=== PATIENT | female | born 1940 | race Caucasian/White ===

== ENCOUNTER 2017-03-11 11:17 | Emergency (ER) | payer MEDICARE, OTHER ==
--- NOTE | 2017-03-11 11:32 | EDM.PDOC ---
ED HPI GENERAL MEDICAL PROBLEM - General Chief Complaint: Respiratory Problem Stated Complaint: INFLUENZA Time Seen by Provider: 03/11/17 11:17 Source of Information: Reports: Patient, Family History Limitations: Reports: No Limitations - History of Present Illness INITIAL COMMENTS - FREE TEXT/NARRATIVE: 76 y.o.w.f came to the ed with her friend to the ed due to weakness and epigastric pain. Pt was dx'd last Monday with influenza A, is not on Tamiflu. pt stated she nearly passed out this am when she got up fast. Feels weak, no N/V /D or any other acute medical issues. BP 115/57 pluse 83 Temp 36.2 RR 18 Pulse ox 100% on RA. I spoke with daughter (PA) in [place]. Onset Date: 03/07/17 Onset Time: 08:00 Duration: Day(s):, Intermittent Location: Reports: Generalized Quality: Reports: Dull (epigastric pressure.) Improves with: Reports: Rest Worsens with: Reports: Movement Context: Reports: Other (flu symptoms) Associated Symptoms: Reports: No Other Symptoms - Related Data Allergies Allergy/AdvReac Type Severity Reaction Status Date / Time No Known Allergies Allergy Verified 03/11/17 11:25 Home Meds: Home Meds Calcium Carbonate/Vitamin D3 [Calcium 600 + Vit D Tablet] 1,200 mg PO WITHBREAKFAST 02/16/14 [History] Raloxifene [Evista] 60 mg PO DAILY 02/16/14 [History] Cholecalciferol (Vitamin D3) [Vitamin D3] 2,000 unit PO DAILY 05/09/16 [History] Ciprofloxacin HCl [Cipro] 500 mg PO BID #20 tablet 03/11/17 [Rx] Oseltamivir [Tamiflu] 75 mg PO DAILY #10 cap 03/11/17 [Rx] Sertraline HCl [Sertraline HCl] 50 mg PO DAILY 03/11/17 [History] Past Medical History - Past Health History Medical/Surgical History: Denies Medical/Surgical History HEENT History: Reports: Cataract, Hard of Hearing Cardiovascular History: Reports: High Cholesterol, Hypertension Respiratory History: Reports: None Gastrointestinal History: Reports: GERD Genitourinary History: Reports: None [employer] 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: , Prolapsed Uterus Musculoskeletal History: Reports: Back Pain, Chronic, Osteoporosis Neurological History: Reports: Other (See Below) Other Neuro History: INSOMNIA Psychiatric History: Reports: Anxiety, Depression Endocrine/Metabolic History: Reports: None Hematologic History: Reports: None Immunologic History: Reports: None Oncologic (Cancer) History: Reports: None Dermatologic History: Reports: None - Infectious Disease History Infectious Disease History: Reports: C-Difficile - Past Surgical History HEENT Surgical History: Reports: Cataract Surgery, LASIK Musculoskeletal Surgical History: Reports: Other (See Below) Social & Family History - Family History Family Medical History: Noncontributory - Tobacco Use Smoking Status *Q: Never Smoker Second Hand Smoke Exposure: No - Caffeine Use Caffeine Use: Reports: Coffee Other Caffeine Use: 1 cup per day - Alcohol Use Days Per Week of Alcohol Use: 0 - Recreational Drug Use Recreational Drug Use: No Drug Use in Last 12 Months: No ED ROS GENERAL - Review of Systems Review Of Systems: See Below Constitutional: Reports: No Symptoms HEENT: Reports: Rhinitis Respiratory: Reports: No Symptoms Cardiovascular: Reports: No Symptoms Endocrine: Reports: No Symptoms GI/Abdominal: Reports: Abdominal Pain (epigastric) : Reports: No Symptoms Musculoskeletal: Reports: No Symptoms Skin: Reports: No Symptoms Neurological: Reports: No Symptoms Psychiatric: Reports: No Symptoms Hematologic/Lymphatic: Reports: No Symptoms Immunologic: Reports: No Symptoms ED EXAM, GENERAL - Physical Exam Exam: See Below Exam Limited By: No Limitations General Appearance: Alert, WD/WN, Mild Distress Eye Exam: Bilateral Eye: Normal Inspection Ears: Normal External Exam Ear Exam: Bilateral Ear: Auricle Normal Nose: Normal Inspection Throat/Mouth: Normal Inspection Head: Atraumatic, Normocephalic Neck: Normal Inspection, Supple, Non-Tender Respiratory/Chest: No Respiratory Distress Cardiovascular: Normal Peripheral Pulses, Regular Rate, Rhythm, No Edema Peripheral Pulses: 1+: Radial (R) GI/Abdominal: Tender (epigastric) (Female) Exam: Deferred Rectal (Female) Exam: Deferred Back Exam: Normal Inspection, Full Range of Motion Extremities: Normal Inspection, Normal Range of Motion Neurological: Alert, Oriented, CN II-XII Intact, Normal Cognition, Normal Gait Psychiatric: Normal Affect, Normal Mood Skin Exam: Warm, Dry, Intact Lymphatic: No Adenopathy EKG INTERPRETATION EKG Date: 03/11/17 Time: 11:40 Rhythm: NSR Rate (Beats/Min): 64 [place]: Normal P-Wave: Present QRS: Normal ST-T: Normal QT: Normal Comparison: NA - No Prior EKG Course - Vital Signs Text/Narrative:: 76 y.o.w.f came to the ed with her friend to the ed due to weakness and epigastric pain. Pt was dx'd last Monday with influenza A, is not on Tamiflu. pt stated she nearly passed out this am when she got up fast. Feels weak, no N/V /D or any other acute medical issues. BP 115/57 pluse 83 Temp 36.2 RR 18 Pulse ox 100% on RA. I spoke with daughter (WINDY) in [place]. PE: Thin 76 y.o.w.f with epigastric pain, was ambulating fine Labs: CbC and BMP (Cr. 0.8 BUN 11)were nl, UA pos for UTI Impression: Viral syndrome, UTI, H/O Inluenza A (check at he clinic), gastritis Tx: Cipro, Tamiflu. Maalox Reexam: Improved, epigastric pain subsided, pt was ambulating fine on D/C Plan: D/C with instructions Last Recorded V/S: Last Vital Signs Temp 36.6 C 03/11/17 11:28 Pulse 69 03/11/17 12:51 Resp 20 03/11/17 12:51 BP 138/65 03/11/17 12:51 Pulse Ox 97 03/11/17 12:51 - Orders/Labs/Meds Orders: Active Orders 24 hr Category Date Time Status CULTURE URINE [RM] Stat Lab 03/11/17 12:28 Received EKG 12 Lead [EK] Routine Ther 03/11/17 11:30 Ordered Labs: Laboratory Tests 03/11/17 03/11/17 03/11/17 Range/Units 11:50 11:50 11:50 WBC 5.0 (4.5-12.0) X10-3/uL RBC 3.92 (3.23-5.20) x10(6)uL Hgb 12.4 (11.5-15.5) g/dL Hct 36.6 (30.0-51.3) % MCV 93.6 (80-96) fL MCH 31.8 (27.7-33.6) pg MCHC 34.0 (32.2-35.4) g/dL RDW 13.3 (11.5-15.5) % Plt Count 233 (125-369) X10(3)uL MPV 7.9 (7.4-10.4) fL Neut % (Auto) 67.9 (46-82) % Lymph % (Auto) 23.0 (13-37) % [place] % (Auto) 8.1 (4-12) % Eos % (Auto) 1 (1.0-5.0) % Baso % (Auto) 0 (0-2) % Neut # (Auto) 3.5 (1.6-8.3) # Lymph # (Auto) 1.1 (0.6-5.0) # [place] # (Auto) 0.4 (0.0-1.3) # Eos # (Auto) 0.0 (0.0-0.8) # Baso # (Auto) 0.0 (0.0-0.2) # Sodium 137 (135-145) mmol/L Potassium 3.8 (3.5-5.3) mmol/L Chloride 102 (100-110) mmol/L Carbon Dioxide 27 (21-32) mmol/L BUN 11 (7-18) mg/dL Creatinine 0.8 (0.55-1.02) mg/dL Est Cr Clr Drug Dosing 43.73 mL/min Estimated GFR (MDRD) > 60 (>60) BUN/Creatinine Ratio 13.8 (9-20) Glucose 99 (80-116) mg/dL Lactic Acid (0.4-2.2) mmol/L Calcium 8.8 (8.6-10.2) mg/dL Troponin I < 0.017 L (<0.017-0.056) ng/mL NT-Pro-B Natriuret Pep 128 (<=450) pg/mL Urine Color (YELLOW) Urine Appearance (CLEAR) Urine pH (5.0-6.5) Ur Specific [place] (1.010-1.025) Urine Protein (NEGATIVE) mg/dL Urine Glucose (UA) (NEGATIVE) mg/dL Urine Ketones (NEGATIVE) mg/dL Urine Occult Blood (NEGATIVE) Urine Nitrite (NEGATIVE) Urine Bilirubin (NEGATIVE) Urine Urobilinogen (NEGATIVE) mg/dL Ur Leukocyte Esterase (NEGATIVE) Urine WBC (0) Ur Squamous Epith Cells (NS,R,O) Urine Bacteria (NS) 03/11/17 03/11/17 Range/Units 11:50 12:23 WBC (4.5-12.0) X10-3/uL RBC (3.23-5.20) x10(6)uL Hgb (11.5-15.5) g/dL Hct (30.0-51.3) % MCV (80-96) fL MCH (27.7-33.6) pg MCHC (32.2-35.4) g/dL RDW (11.5-15.5) % Plt Count (125-369) X10(3)uL MPV (7.4-10.4) fL Neut % (Auto) (46-82) % Lymph % (Auto) (13-37) % [place] % (Auto) (4-12) % Eos % (Auto) (1.0-5.0) % Baso % (Auto) (0-2) % Neut # (Auto) (1.6-8.3) # Lymph # (Auto) (0.6-5.0) # [place] # (Auto) (0.0-1.3) # Eos # (Auto) (0.0-0.8) # Baso # (Auto) (0.0-0.2) # Sodium (135-145) mmol/L Potassium (3.5-5.3) mmol/L Chloride (100-110) mmol/L Carbon Dioxide (21-32) mmol/L BUN (7-18) mg/dL Creatinine (0.55-1.02) mg/dL Est Cr Clr Drug Dosing mL/min Estimated GFR (MDRD) (>60) BUN/Creatinine Ratio (9-20) Glucose (80-116) mg/dL Lactic Acid 1.1 (0.4-2.2) mmol/L Calcium (8.6-10.2) mg/dL Troponin I (<0.017-0.056) ng/mL NT-Pro-B Natriuret Pep (<=450) pg/mL Urine Color Yellow (YELLOW) Urine Appearance Slightly cloudy (CLEAR) Urine pH 6.0 (5.0-6.5) Ur Specific [place] 1.015 (1.010-1.025) Urine Protein Trace (NEGATIVE) mg/dL Urine Glucose (UA) Normal (NEGATIVE) mg/dL Urine Ketones Negative (NEGATIVE) mg/dL Urine Occult Blood Negative (NEGATIVE) Urine Nitrite Negative (NEGATIVE) Urine Bilirubin Negative (NEGATIVE) Urine Urobilinogen Normal (NEGATIVE) mg/dL Ur Leukocyte Esterase Small H (NEGATIVE) Urine WBC 5-10 (0) Ur Squamous Epith Cells Few H (NS,R,O) Urine Bacteria Moderate H (NS) Meds: Medications Discontinued Medications Generic Name Dose Route Start Last Admin Trade Name Mike PRN Reason Stop Dose Admin Al Hydroxide/Mg Hydroxide 30 ml 03/11/17 12:35 03/11/17 12:42 Mag-Al Susp PO 03/11/17 12:36 30 ml ONETIME STA Administration Ciprofloxacin 500 mg 03/11/17 12:42 03/11/17 12:44 Ciprofloxacin Hcl PO 03/11/17 12:43 500 mg ONETIME ONE Administration Oseltamivir Phosphate 75 mg 03/11/17 12:32 03/11/17 12:42 Tamiflu PO 03/11/17 12:33 75 mg ONETIME ONE Administration Departure - Departure Time of Disposition: 12:48 Disposition: Home, Self-Care 01 Condition: Good Clinical Impression: Influenza A UTI (urinary tract infection) Qualifiers: Urinary tract infection type: acute cystitis Gastritis Qualifiers: Gastritis type: unspecified gastritis Chronicity: unspecified Gastritis bleeding: without bleeding Qualified Code(s): K29.70 - Gastritis, unspecified, without bleeding - Discharge Information Prescriptions: Ciprofloxacin HCl [Cipro] 500 mg PO BID #20 tablet Oseltamivir [Tamiflu] 75 mg PO DAILY #10 cap Referrals: Sussy Florian, PRESS SECRETARY [Primary Care Provider] - Forms: ED Department Discharge Additional Instructions: Please increase water intake, please take cipro and tamiflu as recommended, please follow up, please come back if your symptoms get worse acutely. - My Orders Last 24 Hours: My Active Orders 03/11/17 11:30 EKG 12 Lead [EK] Routine 03/11/17 12:28 CULTURE URINE [RM] Stat - Assessment/Plan Last 24 Hours: My Active Orders 03/11/17 11:30 EKG 12 Lead [EK] Routine 03/11/17 12:28 CULTURE URINE [RM] Stat
[2017-03-11] MEDS ORDERED: Oseltamivir 75 MG Cap PO ONE (12:32)
[2017-03-11] MEDS ORDERED: Aluminum Hydroxide/Magnesium Hydroxide Susp 30 ML Cup PO STA (12:35)
[2017-03-11] MEDS ORDERED: Ciprofloxacin 500 MG Tab PO ONE (12:42)
[2017-03-11 12:52] VITALS: BP 138/65
== END 2017-03-11 12:57 | disposition home or self-care (01) ==
LOC: FB.ED 11:17
DX: K29.70 Gastritis, unspecified, without bleeding (principal); N30.00 Acute cystitis without hematuria; J10.1 Influenza due to other identified influenza virus with other respiratory manifestations; I10 Essential (primary) hypertension; E78.00 Pure hypercholesterolemia, unspecified; Z79.899 Other long term (current) drug therapy
CPT/HCPCS: 36415; 80048; 81001; 83605; 83880; 84484; 85025; 87086; 93005; 93010; 99283; 99284; A9270

== ENCOUNTER 2018-08-26 03:43 | Emergency (ER) | payer MEDICARE, OTHER ==
[2018-08-26] MEDS ORDERED: Metoprolol Tartrate 5 MG in Sodium Chloride 0.9% 50 ML IV ONE (04:31)
[2018-08-26] MEDS ORDERED: Metoprolol Tartrate 5 MG/5 ML SDV ONE (04:34)
[2018-08-26] MEDS ORDERED: Metoprolol Tartrate 5 MG/5 ML SDV IVPUSH ONE ×2 (04:40→06:27)
[2018-08-26] MEDS ORDERED: Sodium Chloride 0.9% 1,000 ML IV SCH (04:45)
[2018-08-26] MEDS ORDERED: Magnesium Sulfate/Water 50 ML ONE (06:11)
[2018-08-26] MEDS ORDERED: Amiodarone 150 MG/3 ML SDV IVPUSH ONE (06:25)
[2018-08-26] MEDS ORDERED: Magnesium Sulfate/Water 50 ML IV ONE (06:30)
[2018-08-26] MEDS ORDERED: Potassium Chloride 10% 20 MEQ/15 ML Soln 15 ML UD Cup PO ONE (07:56)
--- NOTE | 2018-08-26 08:46 | EDM.PDOC ---
ED HPI GENERAL MEDICAL PROBLEM - General Chief Complaint: Cardiovascular Problem Stated Complaint: PALPITATIONS Time Seen by Provider: 08/26/18 04:00 Source of Information: Reports: Patient History Limitations: Reports: No Limitations - History of Present Illness INITIAL COMMENTS - FREE TEXT/NARRATIVE: patient woke up around 3am this morning with concern for heart beating funny. Got herself ready and drove to ER. Had been feeling ok prior to this, has had a slight cold and cough all week, was seen in acute care on Monday and started on Azithromycin, tessalon pearls and flonase. Recent flight to [place] and back , legs swelled a little on the flight, then immediately were better once she was up and moving around. No chest pain. No shortness of breath or dyspnea on exertion. Cough is nonproductive, and she has not had a fever. She denies feeling lightheaded or dizzy, nausea, vomiting, diarrhea, or sweaty. No history diabetes, heart or lung problems, has never had anything like this before. Nonsmoker, maybe elevated cholesterol. No history blood clots. - Related Data Allergies Allergy/AdvReac Type Severity Reaction Status Date / Time No Known Allergies Allergy Verified 08/26/18 08:13 Home Meds: Home Meds Calcium Carbonate/Vitamin D3 [Calcium 600 + Vit D Tablet] 1,200 mg PO WITHBREAKFAST 02/16/14 [History] Sertraline HCl 50 mg PO DAILY 03/11/17 [History] .Fluticasone 1 spray NASBOTH DAILY 08/26/18 [History] .Probiotic 1 dose PO ASDIRECTED 08/26/18 [History] Azithromycin [Zithromax] 250 mg PO DAILY 08/26/18 [History] Benzonatate 1 cap PO TID 08/26/18 [History] Past Medical History HEENT History: Reports: Cataract, Hard of Hearing Cardiovascular History: Reports: High Cholesterol Respiratory History: Reports: None Gastrointestinal History: Reports: GERD Genitourinary History: Reports: 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: , Prolapsed Uterus Musculoskeletal History: Reports: Back Pain, Chronic, Osteoporosis Neurological History: Reports: Other (See Below) Other Neuro History: INSOMNIA Psychiatric History: Reports: Anxiety, Depression Endocrine/Metabolic History: Reports: None Hematologic History: Reports: None Immunologic History: Reports: None Oncologic (Cancer) History: Reports: None Dermatologic History: Reports: None - Infectious Disease History Infectious Disease History: Reports: C-Difficile - Past Surgical History HEENT Surgical History: Reports: Cataract Surgery, LASIK Musculoskeletal Surgical History: Reports: Other (See Below) Social & Family History - Family History Family Medical History: Noncontributory - Tobacco Use Smoking Status *Q: Never Smoker - Caffeine Use Caffeine Use: Reports: Coffee Other Caffeine Use: 1 cup per day - Alcohol Use Alcohol Use History: No - Recreational Drug Use Recreational Drug Use: No - Living Situation & Occupation Occupation: Retired (lives alone, currently taking care of neighbor's dog. Daughter is SOLAR PV INSTALLER in [employer] surgery in [place].) ED ROS GENERAL - Review of Systems Review Of Systems: See Below Constitutional: Reports: Fatigue. Denies: Fever, Chills, Night Sweats, Weight Gain HEENT: Reports: Rhinitis. Denies: Throat Pain, Vision Change Respiratory: Reports: Cough. Denies: Shortness of Breath, Wheezing, Pleuritic Chest Pain, Sputum Cardiovascular: Reports: Palpitations. Denies: Chest Pain, Claudication, Dyspnea on Exertion, Edema, Syncope Endocrine: Denies: Polydypsia GI/Abdominal: Denies: Abdominal Pain, Constipation, Nausea, Vomiting : Denies: Frequency, Urgency, Urinary Retention Musculoskeletal: Reports: No Symptoms Skin: Reports: No Symptoms Neurological: Denies: Headache, Numbness, Tingling, Weakness Hematologic/Lymphatic: Denies: Easy Bleeding, Easy Bruising Immunologic: Reports: No Symptoms ED EXAM, GENERAL - Physical Exam Exam: See Below Free Text/Narrative:: general: Alert, extremely pleasant and fully oriented to situation. Throat is without erythema, mucous membranes are moist. There is no cervical lymphadenopathy, neck is freely movable. Heart is irregularly irregular and rate initially around 130. Lungs are completely clear throughout with no wheezes or crackles and good air movement in the bases. Peripheral pulses +2 in both upper and lower extremities and she has no lower extremity edema. Abdomen positive bowel sounds, soft nontender with no rebound or guarding. pupils are equal and reactive, facial muscles are symmetric and she has equal strength bilaterally in both the upper and lower extremities. No obvious skin wounds or lesions. No joint swelling. Course - Vital Signs Text/Narrative:: Initial EKG shows Afib with RVR, vs ?SVT as seems to have P waves but also seems irregular. Monitor appears afib over time. low blood pressure but completely asymptomatic and walked in, uncertain baseline. No heart history. No signs of volume overload. Only recent change is azithromycin/tessalon pearls and flonase, no albuterol, not taking any OTCs. Lungs clear. Will get CXR, labs, IV started. re-evaluation - now definitely afib on monitor, very irregular, rate jumping into 150's. Will try dose of lopressor. Last Recorded V/S: Last Vital Signs Temp 36.6 C 08/26/18 03:45 Pulse 117 H 08/26/18 06:33 Resp 18 08/26/18 05:15 BP 98/58 L 08/26/18 06:33 Pulse Ox 98 08/26/18 05:15 - Orders/Labs/Meds Orders: Active Orders 24 hr Category Date Time Status EKG Documentation Completion [RC] ASDIRECTED Care 08/26/18 03:41 Active EKG Documentation Completion [RC] ASDIRECTED Care 08/26/18 04:44 Active EKG Documentation Completion [RC] ASDIRECTED Care 08/26/18 05:19 Active EKG Documentation Completion [RC] ASDIRECTED Care 08/26/18 07:45 Active CXR [Chest 1V Frontal] [CR] Stat Exams 08/26/18 04:13 Taken Amiodarone In Dextrose,Iso-Osm [Nexterone in Dextrose Med 08/26/18 07:15 Active 360 MG/200 ML] 360 mg in 200 ml IV ASDIRECTED Sodium Chloride 0.9% [Normal Saline] 1,000 ml Med 08/26/18 04:45 Active IV ASDIRECTED EKG 12 Lead [EK] Routine Ther 08/26/18 03:41 Ordered EKG 12 Lead [EK] Routine Ther 08/26/18 04:44 Ordered EKG 12 Lead [EK] Routine Ther 08/26/18 05:19 Ordered EKG 12 Lead [EK] Routine Ther 08/26/18 07:45 Ordered Medication Orders Sodium Chloride (Normal Saline) 1,000 mls @ 500 mls/hr IV ASDIRECTED GAY Last Infusion: 08/26/18 05:35 Dose: 125 mls/hr Infusion: 08/26/18 05:15 Dose: 999 mls/hr Admin: 08/26/18 04:45 Dose: 500 mls/hr Amiodarone HCl/Dextrose (Nexterone In Dextrose 360 Mg/200 Ml) 360 mg in 200 mls @ 33.3 mls/hr IV ASDIRECTED GAY Last Admin: 08/26/18 07:24 Dose: 33.3 mls/hr Labs: Laboratory Tests 08/26/18 08/26/18 08/26/18 Range/Units 04:35 04:35 04:35 WBC 9.0 (4.5-12.0) X10-3/uL RBC 3.70 (3.23-5.20) x10(6)uL Hgb 12.3 (11.5-15.5) g/dL Hct 35.4 (30.0-51.3) % MCV 95.8 (80-96) fL MCH 33.2 (27.7-33.6) pg MCHC 34.6 (32.2-35.4) g/dL RDW 13.2 (11.5-15.5) % Plt Count 259 (125-369) X10(3)uL MPV 8.1 (7.4-10.4) fL Neut % (Auto) 74.1 (46-82) % Lymph % (Auto) 13.8 (13-37) % [place] % (Auto) 10.2 (4-12) % Eos % (Auto) 1 (1.0-5.0) % Baso % (Auto) 1 (0-2) % Neut # (Auto) 6.7 (1.6-8.3) # Lymph # (Auto) 1.2 (0.6-5.0) # [place] # (Auto) 0.9 (0.0-1.3) # Eos # (Auto) 0.1 (0.0-0.8) # Baso # (Auto) 0.1 (0.0-0.2) # Sodium 138 (135-145) mmol/L Potassium 3.7 (3.5-5.3) mmol/L Chloride 104 (100-110) mmol/L Carbon Dioxide 24 (21-32) mmol/L BUN 12 (7-18) mg/dL Creatinine 0.8 (0.55-1.02) mg/dL Est Cr Clr Drug Dosing TNP Estimated GFR (MDRD) > 60 (>60) BUN/Creatinine Ratio 15.0 (9-20) Glucose 101 (80-116) mg/dL Calcium 8.6 (8.6-10.2) mg/dL Magnesium 1.9 (1.8-2.5) mg/dL Total Bilirubin 1.1 (0.1-1.3) mg/dL AST 29 H (5-25) IU/L ALT 28 (12-36) U/L Alkaline Phosphatase 63 (56-112) IU/L Troponin I < 0.017 L (<0.017-0.056) ng/mL Total Protein 6.2 (6.0-8.0) g/dL Albumin 2.7 L (3.2-4.6) g/dL Globulin 3.5 g/dL Albumin/Globulin Ratio 0.8 Meds: Medications Generic Name Dose Route Start Last Admin Trade Name Freq PRN Reason Stop Dose Admin Sodium Chloride 1,000 mls @ 500 mls/hr 08/26/18 04:45 08/26/18 05:35 Normal Saline IV 125 mls/hr ASDIRECTED GAY Infusion Amiodarone HCl/Dextrose 360 mg in 200 mls @ 33.3 mls/hr 08/26/18 07:15 07:24 Nexterone In Dextrose 360 Mg/200 Ml IV 33.3 mls/hr ASDIRECTED GAY Administration Discontinued Medications Generic Name Dose Route Start Last Admin Trade Name Freq PRN Reason Stop Dose Admin Amiodarone HCl 150 mg 08/26/18 06:25 08/26/18 07:00 Cordarone IVPUSH 08/26/18 06:26 150 mg ONETIME ONE Administration Magnesium Sulfate Confirm 08/26/18 06:11 08/26/18 06:27 Magnesium Sulfate In Water Premix Administered 08/26/18 06:12 Not Given Dose 50 mls @ as directed .ROUTE .STK-MED ONE Magnesium Sulfate 50 mls @ 50 mls/hr 08/26/18 06:30 08/26/18 06:20 Magnesium Sulfate In Water Premix IV 08/26/18 07:29 50 mls/hr ONETIME ONE Administration Metoprolol Tartrate Confirm 08/26/18 04:34 08/26/18 04:58 Lopressor Administered 08/26/18 04:35 Not Given Dose 5 mg .ROUTE .STK-MED ONE Metoprolol Tartrate 5 mg 08/26/18 04:40 08/26/18 04:40 Lopressor IVPUSH 08/26/18 04:41 5 mg ONETIME ONE Administration Metoprolol Tartrate 5 mg 08/26/18 06:27 08/26/18 06:33 Lopressor IVPUSH 08/26/18 06:28 5 mg ONETIME ONE Administration Potassium Chloride 40 meq 08/26/18 07:56 08/26/18 08:04 Potassium Chloride Solution PO 08/26/18 07:57 40 meq ONETIME ONE Administration - Re-Assessments/Exams Free Text/Narrative Re-Assessment/Exam: 08/26/18 initial labs and troponin negative, mag still pending, CXR appears ok. Not much response to lopressor except for BP drop. Patient still asymptomatic. IVF started. On slight oxygen but sats were 92-93% on arrival. Fluids seem to help. repeat EKG - patient having multiple PVCs, runs of triplets, sometimes more, and appears to have p waves but dropped beats. Continue fluids, still awaiting mag level, monitoring closely. BP still 90/50 range but she is alert, oriented and talking. QTC 494. Next repeat after 30 minutes, QTC now 520, possible underlying sinus, will give 2gm mag loading dose. BP has been unchanged, rate highly variable. Flips into afib on monitor - very irregular. Free Text/Narrative Re-Assessment/Exam: 08/26/18 Mag infusing, clearly afib on monitor but with multiple PVCs, will load amiodarone. 500 fluid bolus complete and rate turned to 150/hr. 0745 amiodarone load completed, rate now 100 and sometimes 70-80, still seems in /out of afib, EKG shows QTc of 485. Rhythm appears to be sinus with dropped beats. Mag infusion done. oral potassium ordered. BP has remained in systolic 90-100 and diastolic 50-60 overnight and patient has been asymptomatic entire time. Discussed with patient, wants to go home. Strongly advised admission. She is willing to take recommendation, also requests we talk to daughter. Call placed to [facility] and Dr. Smith accepting. Transport arranged, continue amiodarone at 1mg/min (after loading dose of 150 completed). IVF stopped after one liter. Patient remains alert, oriented, lungs clear. Updated daughter, who is a SOLAR PV INSTALLER for cardiothoracic surgery in [place]. Departure - Departure Time of Disposition: 09:17 Disposition: DC/Tfer to Acute Hospital 02 Reason for Transfer *Q: Other Condition: Fair Clinical Impression: Atrial fibrillation with RVR Referrals: Sussy Florian, SOLAR PV INSTALLER [Primary Care Provider] - Additional Instructions: transfered to [facility], Dr. Smith accepting room 449 - My Orders Last 24 Hours: My Active Orders 08/26/18 03:41 EKG Documentation Completion [RC] ASDIRECTED EKG 12 Lead [EK] Routine 08/26/18 04:13 CXR [Chest 1V Frontal] [CR] Stat 08/26/18 04:44 EKG Documentation Completion [RC] ASDIRECTED EKG 12 Lead [EK] Routine 08/26/18 04:45 Sodium Chloride 0.9% [Normal Saline] 1,000 ml IV ASDIRECTED 08/26/18 05:19 EKG Documentation Completion [RC] ASDIRECTED EKG 12 Lead [EK] Routine 08/26/18 07:15 Amiodarone In Dextrose,Iso-Osm [Nexterone in Dextrose 360 MG/200 ML] 360 mg in 200 ml IV ASDIRECTED 08/26/18 07:45 EKG Documentation Completion [RC] ASDIRECTED EKG 12 Lead [EK] Routine - Assessment/Plan Last 24 Hours: My Active Orders 08/26/18 03:41 EKG Documentation Completion [RC] ASDIRECTED EKG 12 Lead [EK] Routine 08/26/18 04:13 CXR [Chest 1V Frontal] [CR] Stat 08/26/18 04:44 EKG Documentation Completion [RC] ASDIRECTED EKG 12 Lead [EK] Routine 08/26/18 04:45 Sodium Chloride 0.9% [Normal Saline] 1,000 ml IV ASDIRECTED 08/26/18 05:19 EKG Documentation Completion [RC] ASDIRECTED EKG 12 Lead [EK] Routine 08/26/18 07:15 Amiodarone In Dextrose,Iso-Osm [Nexterone in Dextrose 360 MG/200 ML] 360 mg in 200 ml IV ASDIRECTED 08/26/18 07:45 EKG Documentation Completion [RC] ASDIRECTED EKG 12 Lead [EK] Routine
[2018-08-26 09:21] VITALS: BP 101/48
--- NOTE | 2018-08-27 12:03 | CR ---
INDICATION: Palpitations, short of breath. CHEST: A single AP upright view of the chest, 08/26/18, was compared with CT of the chest electronic induction hardener dated 02/28/17. There is infiltration in the right mid lung field above the minor fissure, most likely within the right upper lobe. This is perihilar in location. Most likely this represents pneumonia. No definite evidence of CHF is seen. The heart appears to be normal to slightly prominent - upper limits of normal in size. Somewhat flattened diaphragm leaf with hyperaeration raises question of COPD - correlate clinically. Overlying EKG leads are noted. A mild dextroconcave scoliosis of the lower thoracic spine is noted. The aorta is tortuous with minimal calcification in the arch. IMPRESSION: 1. Patchy pneumonia right upper lobe mid lung field, perihilar. 2. ASHD. 3. Probable COPD - correlate clinically. MTDD
== END 2018-08-26 09:10 ==
LOC: FB.ED 03:43
DX: I48.91 Unspecified atrial fibrillation (principal); F41.9 Anxiety disorder, unspecified; F32.9 Major depressive disorder, single episode, unspecified; Z79.899 Other long term (current) drug therapy; Z98.49 Cataract extraction status, unspecified eye
CPT/HCPCS: 36415; 71045; 80053; 83735; 84484; 85025; 93005; 96361; 96365; 96366; 96367; 96375; 96376; 99285; A9270; J0282; J3475; J3490; J7030

== ENCOUNTER 2022-03-04 18:20 | Emergency (ER) | payer MEDICARE, OTHER ==
[2022-03-04] MEDS ORDERED: Sodium Chloride 0.9% 10 ML Syringe FLUSH PRN (18:31)
[2022-03-04 18:56] LABS: ESTIMATED GFR 56 mL/min (>60)
[2022-03-04] MEDS ORDERED: Sodium Chloride 0.9% 500 ML IV ONE (19:37)
[2022-03-04] MEDS ORDERED: Metoprolol Succinate 25 MG Tab.ER PO ONE (19:40)
[2022-03-04 20:01] VITALS: BP 168/94; PULSE 79
[2022-03-04] MEDS ORDERED: Amoxicillin/Clavulanate K 875-125 MG Tab PO ONE (22:25)
== END 2022-03-04 22:45 | disposition home or self-care (01) ==
LOC: FB.ED 18:20
DX: R55 Syncope and collapse (principal); E86.0 Dehydration; N30.00 Acute cystitis without hematuria; R41.0 Disorientation, unspecified; Z79.899 Other long term (current) drug therapy; Z90.710 Acquired absence of both cervix and uterus
CPT/HCPCS: 36415; 80053; 81001; 84484; 85025; 87086; 93005; 96360; 96361; 99284-25; A9270-GY; J7040

== ENCOUNTER 2022-07-13 09:35 | Emergency (ER) | payer MEDICARE, OTHER ==
[2022-07-13] MEDS ORDERED: Sodium Chloride 0.9% 1,000 ML IV ONE (10:17)
[2022-07-13] MEDS ORDERED: Acetaminophen 500 MG Tab PO ONE (10:59)
[2022-07-13] MEDS ORDERED: hydrOXYzine HCl 50 MG/ML SDV IM ONE (11:15)
[2022-07-13 11:56] LABS: ESTIMATED GFR 73 mL/min (>60)
[2022-07-13] MEDS ORDERED: Iopamidol 755 Mg/ML 100 ML Bottle IV ONE (13:50)
[2022-07-13 19:02] VITALS: BP 149/73; PULSE 60
== END 2022-07-13 15:57 | disposition home or self-care (01) ==
LOC: FB.ED 09:35
DX: S06.9X9A Unspecified intracranial injury with loss of consciousness of unspecified duration, initial encounter (principal); D64.9 Anemia, unspecified; E78.00 Pure hypercholesterolemia, unspecified; Z79.899 Other long term (current) drug therapy; W19.XXXA Unspecified fall, initial encounter; Y92.002 Bathroom of unspecified non-institutional (private) residence as the place of occurrence of the external cause
CPT/HCPCS: 36415; 70450; 71046; 71275; 72125; 80053; 81001; 83735; 84484; 85025; 85379; 86140; 93005; 96360; 99285-25; A9270-GY; J7030; Q9967